=== PATIENT | male | born 1990 | race Native Hawaiian/Other Pacific Islander ===

== ENCOUNTER 2019-01-28 20:15 | Inpatient (IN) | payer OTHER ==
[2019-01-28] MEDS ORDERED: Sodium Chloride 0.9% 1,000 ML IV ONE (20:46)
--- NOTE | 2019-01-28 20:54 | C.PDOC ---
History Of Present Illness 29 y/o male presents to ED complaining of a burning sensation with urination and brownish discharge. States the symptoms started 3 days ago and took some antibiotics that helped relieve the symptoms. Reports he did not drink water the next day and symptoms returned yesterday but states his urine is clear when he drinks water. He denies any fever, chills, abdominal pain, nausea, vomiting, diarrhea, back pain, or other complaints. Time Seen by Provider: 01/28/19 20:28 Chief Complaint (Nursing): Anxiety History Per: Patient History/Exam Limitations: no limitations Onset/Duration Of Symptoms: Days Current Symptoms Are (Timing): Still Present Past Medical History Reviewed: Historical Data, Nursing Documentation, Vital Signs Vital Signs: Last Vital Signs Temp 100 F H 01/28/19 20:17 Pulse 144 H 01/28/19 20:17 Resp 20 01/28/19 20:17 BP 141/83 01/28/19 20:17 Pulse Ox 98 01/28/19 20:17 Primary Care Provider: FAMILY PROVIDER,NO - Medical History PMH: Anxiety Family History: States: No Known Family Hx - Social History Hx Alcohol Use: Yes Hx Substance Use: No - Immunization History Hx Tetanus Toxoid Vaccination: No Hx Influenza Vaccination: No Hx Pneumococcal Vaccination: No Review Of Systems Except As Marked, All Systems Reviewed And Found Negative. Constitutional: Negative for: Fever, Chills Gastrointestinal: Negative for: Nausea, Vomiting, Abdominal Pain, Diarrhea Genitourinary: Positive for: Dysuria, Other (brown discharge on urination) Musculoskeletal: Negative for: Back Pain Physical Exam - Physical Exam Appears: Non-toxic, No Acute Distress, Other (Anxious) Skin: Warm, Dry Head: Normacephalic Eye(s): bilateral: Normal Inspection Oral Mucosa: Moist Neck: Normal ROM, Supple Cardiovascular: Rhythm Regular (tachycardic), No Murmur Respiratory: Normal Breath Sounds, No Rales, No Rhonchi, No Wheezing Gastrointestinal/Abdominal: Soft, No Tenderness, No Distention, No Guarding, No Rebound Back: No CVA Tenderness Extremity: No Pedal Edema Extremity: Bilateral: Normal Color And Temperature, Normal ROM Neurological/Psych: Oriented x3, Normal Speech ED Course And Treatment - Laboratory Results Result Diagrams: 01/28/19 21:49 01/28/19 21:49 O2 Sat by Pulse Oximetry: 98 (RA) Pulse Ox Interpretation: Normal Medical Decision Making Medical Decision Making: Plan: --Labs --UA --IV fluids --Urine Culture 20:50- Spoke with Dr. Cruz Hospitalist supervisor electronics assembly who accepts the patient for admission. Disposition - Disposition Forms: [employer] ([place]) - Scribe Statement The provider has reviewed the documentation as recorded by the Scribe Sarah Bellamy Provider Attestation: All medical record entries made by the Scribe were at my direction and personally dictated by me. I have reviewed the chart and agree that the record accurately reflects my personal performance of the history, physical exam, medical decision making, and the department course for this patient. I have also personally directed, reviewed, and agree with the discharge instructions and disposition.
[2019-01-28 20:56] LABS: URINE BACTERIA RARE (<OCC); URINE BILIRUBIN NEGATIVE (NEGATIVE); URINE BLOOD 3+ (NEGATIVE); URINE CLARITY Hazy (Clear); URINE COLOR Straw (YELLOW); URINE GLUCOSE (UA) NORMAL (Normal); URINE LEUKOCYTE ESTERASE 3+ Leu/uL (Negative); URINE PROTEIN NEGATIVE (NEGATIVE); URINE UROBILINOGEN NORMAL mg/dL (0.2-1.0)
[2019-01-28 21:58] LABS: BASO # 0.1 K/uL (0.0-0.2); BASO % 0.6 % (0.0-2.0); EOS # 0.1 K/uL (0.0-0.7); EOS % 0.4 % (0.0-4.0); LYMPH # 3.9 K/uL (1.0-4.3); LYMPH % 21.7 % (20.0-40.0); MEAN CELL VOLUME 84.4 fL (80.0-94.0); MEAN CORPUSCULAR HEMOGLOBIN 28.5 pg (27.0-31.0); MEAN CORPUSCULAR HGB CONC 33.7 g/dL (33.0-37.0); MEAN PLATELET VOLUME 9.2 fL (7.2-11.7); MONO # 0.9 K/uL (0.0-0.8); MONO % 5.1 % (0.0-10.0); NEUT # 13.1 K/uL (1.8-7.0); NEUT % 72.2 % (50.0-75.0); RBC 4.9 Mil/uL (4.40-5.90)
[2019-01-28 22:00] LABS: WHITE BLOOD COUNT 18.1 K/uL (4.8-10.8)
[2019-01-28 22:05] LABS: INR 1.3; PROTHROMBIN TIME 14.7 SECONDS (9.7-12.2)
[2019-01-28 22:08] LABS: ALB/GLOB RATIO 1.4 (1.0-2.1); ALBUMIN 4.5 g/dL (3.5-5.0); ALT/SGPT 16 U/L (21-72); AST/SGOT 22 U/L (17-59); BLOOD UREA NITROGEN 7 mg/dL (9-20); CALCIUM 9.9 mg/dl (8.6-10.4); GFR NON-AFRICAN AMERICAN > 60
[2019-01-28] MEDS ORDERED: Potassium Chloride 20 mEq ER Tab PO STA (23:25)
[2019-01-28] MEDS ORDERED: Sodium Chloride 0.9% 1,000 ML ONE (23:28)
[2019-01-28] MEDS: Sodium Chloride 0.9% 1,000 ML IV SCH (23:49)
--- NOTE | 2019-01-29 00:29 | CP.PCM.HP ---
<Archie Gonzalez - Last Filed: 01/29/19 01:35> History of Present Illness - History of Present Illness History of Present Illness: 29M with no PMHx presents to ED with 3 days of worsening dark urines, dysuria refractory to home antibiotics. Pt said symptoms originally began to resolve w ith his home antibiotics (finished 7 days of Nitrofurantoin) but then symptoms worsened, prompting him to come to the ED. Reports dehydration, he didnt drink any water yesterday during the heat of the day, was out walking a lot at [employer]. Pt reports regular f/u in [place] and at the [facility] where his uncle works. Has been worked up in past for PKD - no cysts ever seen, no hx of HTN. Pt says he is anxious. Pt states he is now urinating pale yellow urine, no pain, feeling much better since started on IV Fluids. ROS Pos+ Dark urines, dysuria, dehydration, anxiety Neg- fever, chills, abdominal pain, nausea, vomiting, diarrhea, back pain, or other complaints. 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, smoking, drug use Allergies: denies Home Rx: Nitrofurantoin for UTI Joaquín [phone] full code Present on Admission - Present on Admission Any Indicators Present on Admission: No Review of Systems - Review of Systems All systems: reviewed and no additional remarkable complaints except (as per HPI) Past Patient History - Past Social History Smoking Status: Never Smoked - RENAL Other/Comment: UTI last week - PSYCHIATRIC Hx Anxiety: Yes Hx Substance Use: No - SURGICAL HISTORY Hx Surgeries: No Meds Allergies/Adverse Reactions: Allergies Allergy/AdvReac Type Severity Reaction Status Date / Time No Known Allergies Allergy Verified 01/10/16 21:20 Physical Exam - Constitutional Appears: Well, Non-toxic, No Acute Distress - Head Exam Head Exam: ATRAUMATIC, NORMAL INSPECTION - Eye Exam Eye Exam: EOMI, Normal appearance, PERRL. absent: Scleral icterus - ENT Exam ENT Exam: Mucous Membranes Moist - Neck Exam Neck exam: Negative for: Lymphadenopathy, Tenderness - Respiratory Exam Respiratory Exam: Clear to Auscultation Bilateral. absent: Rales, Wheezes, Stridor - Cardiovascular Exam Cardiovascular Exam: RRR, +S1, +S2 - GI/Abdominal Exam GI & Abdominal Exam: Normal Bowel Sounds, Soft. absent: Distended, Guarding, Rebound, Tenderness Results - Vital Signs Recent Vital Signs: Last Vital Signs Temp 97.9 F 01/28/19 23:48 Pulse 88 01/28/19 23:48 Resp 16 01/28/19 23:48 BP 119/78 01/28/19 23:48 Pulse Ox 100 01/28/19 23:48 - Labs Result Diagrams: 01/28/19 21:49 01/28/19 21:49 Labs: Laboratory Results - last 24 hr 01/28/19 01/28/19 01/28/19 20:47 21:49 21:49 WBC 18.1 H D RBC 4.90 Hgb 14.0 Hct 41.4 MCV 84.4 MCH 28.5 MCHC 33.7 RDW 13.0 Plt Count 239 MPV 9.2 Neut % (Auto) 72.2 Lymph % (Auto) 21.7 [place] % (Auto) 5.1 Eos % (Auto) 0.4 Baso % (Auto) 0.6 Neut # (Auto) 13.1 H Lymph # (Auto) 3.9 [place] # (Auto) 0.9 H Eos # (Auto) 0.1 Baso # (Auto) 0.1 PT 14.7 H INR 1.3 APTT 31.0 Sodium Potassium Chloride Carbon Dioxide Anion Gap BUN Creatinine Est GFR ( Amer) Est GFR (Non-Af Amer) Random Glucose Calcium Total Bilirubin AST ALT Alkaline Phosphatase Total Protein Albumin Globulin Albumin/Globulin Ratio Urine Color Straw Urine Clarity Hazy Urine pH 7.0 Ur Specific [place] 1.002 L Urine Protein Negative Urine Glucose (UA) Normal Urine Ketones Negative Urine Blood 3+ H Urine Nitrate Negative Urine Bilirubin Negative Urine Urobilinogen Normal Ur Leukocyte Esterase 3+ H Urine WBC (Auto) 103 H Urine RBC (Auto) 21 H Urine Bacteria Rare 01/28/19 21:49 WBC RBC Hgb Hct MCV MCH MCHC RDW Plt Count MPV Neut % (Auto) Lymph % (Auto) [place] % (Auto) Eos % (Auto) Baso % (Auto) Neut # (Auto) Lymph # (Auto) [place] # (Auto) Eos # (Auto) Baso # (Auto) PT INR APTT Sodium 133 Potassium 3.3 L Chloride 98 Carbon Dioxide 23 Anion Gap 15 BUN 7 L Creatinine 0.7 L Est GFR ( Amer) > 60 Est GFR (Non-Af Amer) > 60 Random Glucose 206 H D Calcium 9.9 Total Bilirubin 0.7 AST 22 ALT 16 L D Alkaline Phosphatase 97 Total Protein 7.8 Albumin 4.5 Globulin 3.2 Albumin/Globulin Ratio 1.4 Urine Color Urine Clarity Urine pH Ur Specific [place] Urine Protein Urine Glucose (UA) Urine Ketones Urine Blood Urine Nitrate Urine Bilirubin Urine Urobilinogen Ur Leukocyte Esterase Urine WBC (Auto) Urine RBC (Auto) Urine Bacteria Assessment & Plan - Assessment and Plan (Free Text) Assessment: 29M admitted for recurrent UTI Complicated UTI Rocephin 1g q12 IVPB NS @ 200 Tylenol for fevers WBCs Elevated, Febrile f/u UC and AM Labs Monitor I&Os Hypokalemia Replete as indicated f/u AM CMP PPx HHD CK PGY1 <Shailesh Cruz - Last Filed: 01/29/19 06:18> Results - Vital Signs Recent Vital Signs: Last Vital Signs Temp 98.8 F 01/29/19 01:00 Pulse 91 H 01/28/19 23:50 Resp 20 01/28/19 23:50 BP 132/78 01/28/19 23:50 Pulse Ox 100 01/28/19 23:50 - Labs Result Diagrams: 01/28/19 21:49 01/28/19 21:49 Labs: Laboratory Results - last 24 hr 01/28/19 01/28/19 01/28/19 20:47 21:49 21:49 WBC 18.1 H D RBC 4.90 Hgb 14.0 Hct 41.4 MCV 84.4 MCH 28.5 MCHC 33.7 RDW 13.0 Plt Count 239 MPV 9.2 Neut % (Auto) 72.2 Lymph % (Auto) 21.7 [place] % (Auto) 5.1 Eos % (Auto) 0.4 Baso % (Auto) 0.6 Neut # (Auto) 13.1 H Lymph # (Auto) 3.9 [place] # (Auto) 0.9 H Eos # (Auto) 0.1 Baso # (Auto) 0.1 PT 14.7 H INR 1.3 APTT 31.0 Sodium Potassium Chloride Carbon Dioxide Anion Gap BUN Creatinine Est GFR ( Amer) Est GFR (Non-Af Amer) Random Glucose Calcium Total Bilirubin AST ALT Alkaline Phosphatase Total Protein Albumin Globulin Albumin/Globulin Ratio Urine Color Straw Urine Clarity Hazy Urine pH 7.0 Ur Specific [place] 1.002 L Urine Protein Negative Urine Glucose (UA) Normal Urine Ketones Negative Urine Blood 3+ H Urine Nitrate Negative Urine Bilirubin Negative Urine Urobilinogen Normal Ur Leukocyte Esterase 3+ H Urine WBC (Auto) 103 H Urine RBC (Auto) 21 H Urine Bacteria Rare 01/28/19 21:49 WBC RBC Hgb Hct MCV MCH MCHC RDW Plt Count MPV Neut % (Auto) Lymph % (Auto) [place] % (Auto) Eos % (Auto) Baso % (Auto) Neut # (Auto) Lymph # (Auto) [place] # (Auto) Eos # (Auto) Baso # (Auto) PT INR APTT Sodium 133 Potassium 3.3 L Chloride 98 Carbon Dioxide 23 Anion Gap 15 BUN 7 L Creatinine 0.7 L Est GFR ( Amer) > 60 Est GFR (Non-Af Amer) > 60 Random Glucose 206 H D Calcium 9.9 Total Bilirubin 0.7 AST 22 ALT 16 L D Alkaline Phosphatase 97 Total Protein 7.8 Albumin 4.5 Globulin 3.2 Albumin/Globulin Ratio 1.4 Urine Color Urine Clarity Urine pH Ur Specific [place] Urine Protein Urine Glucose (UA) Urine Ketones Urine Blood Urine Nitrate Urine Bilirubin Urine Urobilinogen Ur Leukocyte Esterase Urine WBC (Auto) Urine RBC (Auto) Urine Bacteria Assessment & Plan - Date & Time Date: 01/29/19 (I have seen and examined the patient. I agree with the findings and plan of care as documented by Dr. Gonzalez. Patient with acute UTI. Failure of outpatient therapy. IV Rocephin. Urine and blood cultures. Hypokalemia. Replete. Monitor for acute changes.) Time: 02:00 Attending/Attestation - Attestation I have personally seen and examined this patient.: Yes I have fully participated in the care of the patient.: Yes I have reviewed all pertinent clinical information: Yes
[2019-01-29] MEDS: Sodium Chloride 0.9% 1,000 ML IV SCH ×2 (04:23→19:38)
[2019-01-29 08:29] LABS: BASO % 0.4 % (0.0-2.0); EOS # 0.1 K/uL (0.0-0.7); EOS % 0.6 % (0.0-4.0); HEMOGLOBIN 12.4 g/dL (12.0-18.0); LYMPH # 1.7 K/uL (1.0-4.3); LYMPH % 20.2 % (20.0-40.0); MEAN CELL VOLUME 83.5 fL (80.0-94.0); MEAN CORPUSCULAR HEMOGLOBIN 28.9 pg (27.0-31.0); MEAN CORPUSCULAR HGB CONC 34.6 g/dL (33.0-37.0); MEAN PLATELET VOLUME 9.2 fL (7.2-11.7); MONO # 0.4 K/uL (0.0-0.8); MONO % 5.4 % (0.0-10.0); NEUT # 6.1 K/uL (1.8-7.0); NEUT % 73.4 % (50.0-75.0); NRBC % 0.1 % (0.0-2.0); RBC 4.3 Mil/uL (4.40-5.90); RED CELL DISTRIBUTION WIDTH 12.9 % (11.5-14.5)
[2019-01-29 08:34] LABS: WHITE BLOOD COUNT 8.3 K/uL (4.8-10.8)
[2019-01-29 08:51] LABS: ALB/GLOB RATIO 1.4 (1.0-2.1); ALBUMIN 3.6 g/dL (3.5-5.0); ALT/SGPT 22 U/L (21-72); AST/SGOT 22 U/L (17-59); BLOOD UREA NITROGEN 6 mg/dL (9-20); CALCIUM 8.4 mg/dl (8.6-10.4); GFR NON-AFRICAN AMERICAN > 60
--- NOTE | 2019-01-29 14:36 | CP.PCM.PN ---
<Tr Real - Last Filed: 01/29/19 14:32> Subjective - Date & Time of Evaluation Date of Evaluation: 01/29/19 Time of Evaluation: 14:36 - Subjective Subjective: PGY-[address] Rajan Patient seen and examined at bedside. Tmax noted 100.9 overnight. Patient states his symptoms have all resolved. Patient that prior to today he had been experiencing burning with urination and increased urinary frequency. He states that today however, he has urinated without any discomfort and has not had increased frequency. Denies flank pain, abdominal pain, abdominal distention. Denies chest pain, shortness of breath, dizziness, headache, shortness of breath. Objective - Vital Signs/Intake and Output Vital Signs (last 24 hours): Temp Pulse Resp BP Pulse Ox 97.8 F 83 20 116/71 100 01/29/19 08:00 01/29/19 08:00 01/29/19 08:00 01/29/19 08:00 01/29/19 08:00 Intake and Output: 01/29/19 01/29/19 06:59 18:59 Intake Total 1600 Balance 1600 - Medications Medications: Current Medications Acetaminophen (Tylenol 325mg Tab) 650 mg PO Q6 PRN PRN Reason: Fever >100.4 F Last Admin: 01/29/19 00:53 Dose: 650 mg Ceftriaxone Sodium 1 gm/ (Sodium Chloride) 100 mls @ 100 mls/hr IVPB Q12H EL; Protocol Last Admin: 01/29/19 10:38 Dose: 100 mls/hr Sodium Chloride (Sodium Chloride 0.9%) 1,000 mls @ 200 mls/hr IV .Q5H EL Last Admin: 01/29/19 04:23 Dose: Not Given - Labs Labs: 01/29/19 08:17 01/29/19 08:17 PT 14.7 SECONDS (9.7-12.2) H 01/28/19 21:49 INR 1.3 01/28/19 21:49 APTT 31.0 SECONDS (21-34) 01/28/19 21:49 - Constitutional Appears: Non-toxic, No Acute Distress - Head Exam Head Exam: ATRAUMATIC, NORMOCEPHALIC - Eye Exam Eye Exam: EOMI, PERRL - ENT Exam ENT Exam: Mucous Membranes Moist - Respiratory Exam Respiratory Exam: Clear to Ausculation Bilateral, NORMAL BREATHING PATTERN. absent: Rhonchi, Wheezes - Cardiovascular Exam Cardiovascular Exam: REGULAR RHYTHM, +S1, +S2 - GI/Abdominal Exam GI & Abdominal Exam: Soft, Normal Bowel Sounds. absent: Tenderness - Extremities Exam Extremities Exam: Normal Inspection. absent: Pedal Edema - Neurological Exam Neurological Exam: Alert, Awake, Oriented x3 - Psychiatric Exam Psychiatric exam: Normal Affect, Normal Mood - Skin Skin Exam: Dry, Intact Assessment and Plan - Assessment and Plan (Free Text) Assessment: 29M admitted for UTI that did not resolve with outpatient therapy Complicated UTI -WBC 18.1 --> 8.3 -Tmax 100.9 overnight -NS @ 200 -Tylenol prn fever -Monitor I&Os Imaging -CT abd/pelvis 01/29 - f/u ABx -Rocephin 1g q12 IVPB Hypokalemia -Replete as indicated -Monitor daily CMP PPx -HHD Assessment and plan d/w Dr. Mohini Real, PGY-1 <Shankar Rajan H - Last Filed: 01/29/19 15:10> Objective - Vital Signs/Intake and Output Vital Signs (last 24 hours): Temp Pulse Resp BP Pulse Ox 97.8 F 83 20 116/71 100 01/29/19 08:00 01/29/19 08:00 01/29/19 08:00 01/29/19 08:00 01/29/19 08:00 Intake and Output: 01/29/19 01/29/19 06:59 18:59 Intake Total 1600 Balance 1600 - Medications Medications: Current Medications Acetaminophen (Tylenol 325mg Tab) 650 mg PO Q6 PRN PRN Reason: Fever >100.4 F Last Admin: 01/29/19 00:53 Dose: 650 mg Ceftriaxone Sodium 1 gm/ (Sodium Chloride) 100 mls @ 100 mls/hr IVPB Q12H EL; Protocol Last Admin: 01/29/19 10:38 Dose: 100 mls/hr Sodium Chloride (Sodium Chloride 0.9%) 1,000 mls @ 200 mls/hr IV .Q5H EL Last Admin: 01/29/19 04:23 Dose: Not Given Lorazepam (Ativan) 0.5 mg PO ONCE PRN PRN Reason: Anxiety - Labs Labs: 01/29/19 08:17 01/29/19 08:17 PT 14.7 SECONDS (9.7-12.2) H 01/28/19 21:49 INR 1.3 01/28/19 21:49 APTT 31.0 SECONDS (21-34) 01/28/19 21:49 Attending/Attestation - Attestation I have personally seen and examined this patient.: Yes I have fully participated in the care of the patient.: Yes I have reviewed all pertinent clinical information, including history, physical exam and plan: Yes Notes (Text): 01/29/19 15:08 Medical attending: Patient was seen and examined by me. Agree with the above not e by the resident The patient was not in any acute distress. The urine was reporting + gram negative bacteria. He says he feels a lot better nowm much less dyuria than previously. Denied fever, denied pain when walking. Denied scrotal pain as well Check HIV and also check imaging Peer Rajan
[2019-01-29] MEDS ORDERED: Iohexol 350mg/ml 100 ML ONE (19:17)
[2019-01-30] MEDS: Sodium Chloride 0.9% 1,000 ML IV SCH ×6 (01:43→23:36)
[2019-01-30 07:06] LABS: ALB/GLOB RATIO 1.2 (1.0-2.1); ALBUMIN 3.5 g/dL (3.5-5.0); ALT/SGPT 23 U/L (21-72); AST/SGOT 19 U/L (17-59); BLOOD UREA NITROGEN 7 mg/dL (9-20); CALCIUM 8.8 mg/dl (8.6-10.4); GFR NON-AFRICAN AMERICAN > 60
[2019-01-30 07:07] LABS: BASO % 0.4 % (0.0-2.0); EOS # 0.1 K/uL (0.0-0.7); EOS % 1.1 % (0.0-4.0); HEMOGLOBIN 12.5 g/dL (12.0-18.0); LYMPH # 2.3 K/uL (1.0-4.3); LYMPH % 28.4 % (20.0-40.0); MEAN CELL VOLUME 84.4 fL (80.0-94.0); MEAN CORPUSCULAR HEMOGLOBIN 28.7 pg (27.0-31.0); MEAN PLATELET VOLUME 9.2 fL (7.2-11.7); MONO # 0.4 K/uL (0.0-0.8); MONO % 5.6 % (0.0-10.0); NEUT # 5.1 K/uL (1.8-7.0); NEUT % 64.5 % (50.0-75.0); RBC 4.35 Mil/uL (4.40-5.90); WHITE BLOOD COUNT 7.9 K/uL (4.8-10.8)
--- NOTE | 2019-01-30 11:14 | CT ---
Date of service: 01/30/2019 PROCEDURE: CT Abdomen and Pelvis with Oral contrast. HISTORY: UTI in 29 yo male COMPARISON: No prior study available comparison. TECHNIQUE: Contiguous axial images of the abdomen and pelvis performed in standard fashion following intravenous injection approximately 100 cc Omnipaque 350 contrast material. Additional 2D sagittal coronal reformats generated. Radiation dose: Total exam DLP = 212.22 mGy-cm. This CT exam was performed using one or more of the following dose reduction techniques: Automated exposure control, adjustment of the mA and/or kV according to patient size, and/or use of iterative reconstruction technique. FINDINGS: LOWER THORAX: Unremarkable. LIVER: Liver exhibits relatively normal size and attenuation pattern without mass collection or calcification portal and splenic veins are opacified GALLBLADDER AND BILE DUCTS: Gallbladder physiologically distended. No evidence of intraluminal gallbladder calculi. PANCREAS: Pancreas grossly unremarkable without mass collection or calcification. No significant pancreatic ductal dilatation. SPLEEN: Spleen exhibits normal size and attenuation pattern without masses collections. ADRENALS: Slightly nodular appearing left adrenal gland. KIDNEYS AND URETERS: Kidneys demonstrate symmetric nephrograms. No evidence of nephrolithiasis or hydronephrosis. There is a small approximately 6.6 mm low-attenuation focus lateral posterolateral cortex left kidney that exhibits Hounsfield units in the upper 40s. This could represent a hyperdense cyst. Renal ultrasound follow-up confirm and exclude any solid component.. No evidence to suggest pyelonephritis. BLADDER: Urinary bladder wall is minimally thickened despite physiologic distension. Rule out mild muscular hypertrophy however correlation with urinalysis recommended to assess for cystitis. REPRODUCTIVE: Unremarkable as visualized. APPENDIX: What is felt to represent normal appendix best seen on axial series 3, image number [id number]. BOWEL: Evaluation of bowel is limited due to the lack oral on the stomach is incompletely distended. Visualized loops of small bowel exhibit normal contour caliber. No evidence of acute mechanical small bowel obstruction. Large amount of stool seen throughout colon consistent with fecal retention/constipation. PERITONEUM: Unremarkable. No fluid collection. No free air. LYMPH NODES: Unremarkable. No enlarged lymph nodes. VASCULATURE: Unremarkable. No aortic aneurysm. No aortic atherosclerotic calcification or mural plaque present. BONES: No fracture or destructive lesion. OTHER FINDINGS: None. IMPRESSION: Minimal bladder wall thickening; rule out cystitis.. No evidence of nephrolithiasis hydronephrosis. No evidence suggest pyelonephritis. Small rounded low-attenuation focus lateral cortex right kidney with Hounsfield units in the low 40s. This could represent hyperdense cyst. Renal ultrasound confirm. Findings consistent with fecal retention-constipation
--- NOTE | 2019-01-30 14:50 | CP.PCM.PN ---
<Tr Real - Last Filed: 01/30/19 14:50> Subjective - Date & Time of Evaluation Date of Evaluation: 01/30/19 Time of Evaluation: 14:58 - Subjective Subjective: PGY-[address] Rajan Patient seen and examined at bedside. Afebrile overnight. Patient states his symptoms have all resolved. Cultures resulted growing ESBL+ E coli. Patient made aware of need for longer course IV antibiotics. Denies chest pain, sh ortness of breath, dizziness, headache, shortness of breath. Objective - Vital Signs/Intake and Output Vital Signs (last 24 hours): Temp Pulse Resp BP Pulse Ox 97.9 F 65 20 96/60 L 100 01/30/19 08:00 01/30/19 08:00 01/30/19 08:00 01/30/19 08:00 01/30/19 08:00 Intake and Output: 01/30/19 01/30/19 06:59 18:59 Intake Total 2740 300 Balance 2740 300 - Medications Medications: Current Medications Acetaminophen (Tylenol 325mg Tab) 650 mg PO Q6 PRN PRN Reason: Fever >100.4 F Last Admin: 01/29/19 00:53 Dose: 650 mg Sodium Chloride (Sodium Chloride 0.9%) 1,000 mls @ 200 mls/hr IV .Q5H EL Last Admin: 01/30/19 12:54 Dose: Not Given Meropenem 1 gm/ Sodium (Chloride) 100 mls @ 100 mls/hr IVPB Q8H EL; Protocol Lorazepam (Ativan) 0.5 mg PO ONCE PRN PRN Reason: Anxiety Last Admin: 01/29/19 19:33 Dose: 0.5 mg Lorazepam (Ativan) 0.5 mg PO ONCE PRN PRN Reason: Anxiety Last Admin: 01/30/19 07:53 Dose: 0.5 mg - Labs Labs: 01/30/19 06:44 01/30/19 06:44 PT 14.7 SECONDS (9.7-12.2) H 01/28/19 21:49 INR 1.3 01/28/19 21:49 APTT 31.0 SECONDS (21-34) 01/28/19 21:49 - Constitutional Appears: Non-toxic, No Acute Distress - Head Exam Head Exam: ATRAUMATIC, NORMOCEPHALIC - Eye Exam Eye Exam: EOMI - ENT Exam ENT Exam: Mucous Membranes Moist - Respiratory Exam Respiratory Exam: Clear to Ausculation Bilateral, NORMAL BREATHING PATTERN. absent: Rhonchi, Wheezes - Cardiovascular Exam Cardiovascular Exam: REGULAR RHYTHM, +S1, +S2 - GI/Abdominal Exam GI & Abdominal Exam: Soft, Normal Bowel Sounds. absent: Tenderness - Extremities Exam Extremities Exam: Normal Inspection. absent: Pedal Edema, Tenderness - Neurological Exam Neurological Exam: Alert, Awake, CN II-XII Intact, Oriented x3 - Skin Skin Exam: Dry, Intact Assessment and Plan - Assessment and Plan (Free Text) Assessment: Assessment: 29M admitted for UTI that did not resolve with outpatient therapy. ESBL E coli UTI. ESBL E Coli in Urine Acute Imaging: CT abd/pelvis 01/30: Minimal bladder wall thickening; rule out cystitis.. No evidence of nephrolithiasis hydronephrosis. No evidence suggest pyelonephritis. Small rounded low-attenuation focus lateral cortex right kidney with Hounsfield units in the low 40s. This could represent hyperdense cyst. Renal ultrasound confirm. Findings consistent with fecal retention-constipation -ID consulted, Dr. Lucas - f/u -Urine cultures - ESBL E Coli (sensitive to Meropenem) - final -Patient informed he is likely to require long-term antibiotic therapy for up to 8 weeks -Leukocytosis resolved -Afebrile -NS @ 200 -Tylenol prn fever -Monitor I&Os -Rocephin d/c'd (01/28-01/30) ABx -Meropenem 1gm IV Q8h (01/30) Hypokalemia resolved -Replete as indicated -Monitor daily CMP PPx -HHD Dispo: Urine cultures resulted growing ESBL E Coli sensitive to Meropenem. ID consulted, Dr. Lucas. Patient made aware need for long course IV abx. D/w CM and patient does not have insurance, will not be eligible for outpatient infusions. Assessment and plan d/w Dr. Mohini Real, PGY-1 <Shankar Rajan - Last Filed: 01/30/19 16:39> Objective - Vital Signs/Intake and Output Vital Signs (last 24 hours): Temp Pulse Resp BP Pulse Ox 98.9 F 85 20 98/61 L 100 01/30/19 15:00 01/30/19 15:00 01/30/19 15:00 01/30/19 15:00 01/30/19 15:00 Intake and Output: 01/30/19 01/30/19 06:59 18:59 Intake Total 2740 300 Balance 2740 300 - Medications Medications: Current Medications Acetaminophen (Tylenol 325mg Tab) 650 mg PO Q6 PRN PRN Reason: Fever >100.4 F Last Admin: 01/29/19 00:53 Dose: 650 mg Sodium Chloride (Sodium Chloride 0.9%) 1,000 mls @ 200 mls/hr IV .Q5H EL Last Admin: 01/30/19 16:20 Dose: 200 mls/hr Meropenem 1 gm/ Sodium (Chloride) 100 mls @ 100 mls/hr IVPB Q8H EL; Protocol Last Admin: 01/30/19 16:15 Dose: 100 mls/hr Lorazepam (Ativan) 0.5 mg PO ONCE PRN PRN Reason: Anxiety Last Admin: 01/29/19 19:33 Dose: 0.5 mg Lorazepam (Ativan) 0.5 mg PO ONCE PRN PRN Reason: Anxiety Last Admin: 01/30/19 07:53 Dose: 0.5 mg - Labs Labs: 01/30/19 06:44 01/30/19 06:44 PT 14.7 SECONDS (9.7-12.2) H 01/28/19 21:49 INR 1.3 01/28/19 21:49 APTT 31.0 SECONDS (21-34) 01/28/19 21:49 Attending/Attestation - Attestation I have personally seen and examined this patient.: Yes I have fully participated in the care of the patient.: Yes I have reviewed all pertinent clinical information, including history, physical exam and plan: Yes Notes (Text): 01/30/19 16:30 Medical attending: Patient was seen and examined by me. Agree with the above note by the resident The patient was not in any acute distress He went for the CT scan earlier this morning The patient also had return of the culture showing he has ESBL + E coli. We were about to discharge patient however given this culture ID was notified and Merropenon is being given Shankar Rajan
[2019-01-30] MEDS: Meropenem 1 GM in Sodium Chloride 0.9% 100 ML IVPB SCH ×2 (16:15→23:32)
[2019-01-31] MEDS: Sodium Chloride 0.9% 1,000 ML IV SCH ×6 (01:42→21:55)
[2019-01-31 08:07] VITALS: O2SAT 100
[2019-01-31] MEDS: Meropenem 1 GM in Sodium Chloride 0.9% 100 ML IVPB SCH (08:08)
[2019-01-31 08:20] LABS: BASO % 0.4 % (0.0-2.0); EOS # 0.1 K/uL (0.0-0.7); EOS % 0.8 % (0.0-4.0); HEMOGLOBIN 13.7 g/dL (12.0-18.0); LYMPH # 1.7 K/uL (1.0-4.3); LYMPH % 24.1 % (20.0-40.0); MEAN CELL VOLUME 83.5 fL (80.0-94.0); MEAN CORPUSCULAR HEMOGLOBIN 28.9 pg (27.0-31.0); MEAN CORPUSCULAR HGB CONC 34.6 g/dL (33.0-37.0); MEAN PLATELET VOLUME 8.8 fL (7.2-11.7); MONO # 0.3 K/uL (0.0-0.8); MONO % 4.6 % (0.0-10.0); NEUT # 5.1 K/uL (1.8-7.0); NEUT % 70.1 % (50.0-75.0); RBC 4.73 Mil/uL (4.40-5.90); WHITE BLOOD COUNT 7.2 K/uL (4.8-10.8)
[2019-01-31 08:36] LABS: ALB/GLOB RATIO 1.5 (1.0-2.1); ALT/SGPT 21 U/L (21-72); AST/SGOT 21 U/L (17-59); BLOOD UREA NITROGEN 11 mg/dL (9-20); CALCIUM 8.9 mg/dl (8.6-10.4); GFR NON-AFRICAN AMERICAN > 60
--- NOTE | 2019-01-31 09:27 | CP.PCM.PN ---
<Tr Real - Last Filed: 01/31/19 15:08> Subjective - Date & Time of Evaluation Date of Evaluation: 01/31/19 Time of Evaluation: 09:32 - Subjective Subjective: PGY-[address] Rajan Patient seen and examined at bedside. No acute events noted overnight. Patient continues to be asymptomatic. Afebrile overnight. Patient expressing frustration with ESBL diagnosis, but he understands. Denies chest pain, shortne ss of breath, dizziness, headache, shortness of breath. Objective - Vital Signs/Intake and Output Vital Signs (last 24 hours): Temp Pulse Resp BP Pulse Ox 98.5 F 65 20 106/66 100 01/31/19 07:10 01/31/19 07:10 01/31/19 07:10 01/31/19 07:10 01/31/19 07:10 Intake and Output: 01/31/19 01/31/19 06:59 18:59 Intake Total 3740 Balance 3740 - Medications Medications: Current Medications Acetaminophen (Tylenol 325mg Tab) 650 mg PO Q6 PRN PRN Reason: Fever >100.4 F Last Admin: 01/29/19 00:53 Dose: 650 mg Sodium Chloride (Sodium Chloride 0.9%) 1,000 mls @ 200 mls/hr IV .Q5H EL Last Admin: 01/31/19 05:38 Dose: 200 mls/hr Meropenem 1 gm/ Sodium (Chloride) 100 mls @ 100 mls/hr IVPB Q8H EL; Protocol Last Admin: 01/31/19 08:08 Dose: 100 mls/hr Lorazepam (Ativan) 0.5 mg PO ONCE PRN PRN Reason: Anxiety Last Admin: 01/29/19 19:33 Dose: 0.5 mg Lorazepam (Ativan) 0.5 mg PO ONCE PRN PRN Reason: Anxiety Last Admin: 01/30/19 07:53 Dose: 0.5 mg - Labs Labs: 01/31/19 08:08 01/31/19 08:08 PT 14.7 SECONDS (9.7-12.2) H 01/28/19 21:49 INR 1.3 01/28/19 21:49 APTT 31.0 SECONDS (21-34) 01/28/19 21:49 - Constitutional Appears: Non-toxic, No Acute Distress - Head Exam Head Exam: ATRAUMATIC, NORMOCEPHALIC - Eye Exam Eye Exam: EOMI - ENT Exam ENT Exam: Mucous Membranes Moist - Respiratory Exam Respiratory Exam: Clear to Ausculation Bilateral, NORMAL BREATHING PATTERN. absent: Rhonchi, Wheezes - Cardiovascular Exam Cardiovascular Exam: REGULAR RHYTHM, +S1, +S2 - GI/Abdominal Exam GI & Abdominal Exam: Soft, Normal Bowel Sounds. absent: Tenderness - Extremities Exam Extremities Exam: Normal Inspection. absent: Pedal Edema, Tenderness - Neurological Exam Neurological Exam: Alert, Awake - Psychiatric Exam Psychiatric exam: Normal Affect, Normal Mood - Skin Skin Exam: Dry, Intact Assessment and Plan - Assessment and Plan (Free Text) Assessment: 29M admitted for UTI that did not resolve with outpatient therapy. ESBL E coli UTI. ESBL E Coli in Urine status: acute Imaging: CT abd/pelvis 01/30: Minimal bladder wall thickening; rule out cystitis.. No evidence of nephrolithiasis hydronephrosis. No evidence suggest pyelonephritis. Small rounded low-attenuation focus lateral cortex right kidney with Hounsfield units in the low 40s. This could represent hyperdense cyst. Renal ultrasound confirm. Findings consistent with fecal retention-constipation -Asymptomatic at this time -ID consulted, Dr. Lucas - f/u -Urine cultures - ESBL E Coli (sensitive to Meropenem) - final -Patient informed he is likely to require long-term antibiotic therapy -Leukocytosis resolved -Afebrile -NS @ 200 -Tylenol prn fever -Monitor I&Os -Rocephin d/c'd (01/28-01/30) ABx -Meropenem 1gm IV Q8h (01/30) Anxiety -Psych consulted per patient request, Dr. Del Valle - f/u Hypokalemia status: resolved -Replete as indicated -Monitor daily CMP PPx -HHD Dispo: Urine cultures resulted growing ESBL E Coli sensitive to Meropenem. ID consulted, Dr. Lucas. Patient made aware need for long course IV abx. D/w CM and patient does not have insurance, will not be eligible for outpatient infus ions. Assessment and plan d/w Dr. Mohini Real, PGY-1 <Shankar Rajan - Last Filed: 01/31/19 17:19> Objective - Vital Signs/Intake and Output Vital Signs (last 24 hours): Temp Pulse Resp BP Pulse Ox 98.0 F 84 20 120/81 100 01/31/19 16:00 01/31/19 16:00 01/31/19 16:00 01/31/19 16:00 01/31/19 16:00 Intake and Output: 01/31/19 01/31/19 06:59 18:59 Intake Total 3740 1400 Balance 3740 1400 - Medications Medications: Current Medications Acetaminophen (Tylenol 325mg Tab) 650 mg PO Q6 PRN PRN Reason: Fever >100.4 F Last Admin: 01/29/19 00:53 Dose: 650 mg Sodium Chloride (Sodium Chloride 0.9%) 1,000 mls @ 200 mls/hr IV .Q5H EL Last Admin: 01/31/19 16:31 Dose: Not Given Lorazepam (Ativan) 0.5 mg PO ONCE PRN PRN Reason: Anxiety Last Admin: 01/29/19 19:33 Dose: 0.5 mg Lorazepam (Ativan) 0.5 mg PO ONCE PRN PRN Reason: Anxiety Last Admin: 01/30/19 07:53 Dose: 0.5 mg - Labs Labs: 01/31/19 08:08 01/31/19 08:08 PT 14.7 SECONDS (9.7-12.2) H 01/28/19 21:49 INR 1.3 01/28/19 21:49 APTT 31.0 SECONDS (21-34) 01/28/19 21:49 Attending/Attestation - Attestation I have personally seen and examined this patient.: Yes I have fully participated in the care of the patient.: Yes I have reviewed all pertinent clinical information, including history, physical exam and plan: Yes Notes (Text): Medical attending: Patient was seen and examined by me. Agree with the above note by the resident The patient was not in any acute distress - he reported feeling comfortable. As previously mentioned there was + ESBL E coli found in the culture so abx were now changed over. The patient later was evaluated by ID and it was suggested that the patient could get a PICC line and then come back to the hospital for Inavz infusions. Otherwise he may need to be here for a prolonged period of time with the IV abx Shankar Rajan
--- NOTE | 2019-01-31 15:03 | CP.PCM.CON ---
History of Present Illness - History of Present Illness History of Present Illness: dictated Past Patient History - Past Medical History & Family History Past Medical History?: Yes - Past Social History Smoking Status: Never Smoked - RENAL Other/Comment: UTI last week - MUSCULOSKELETAL/RHEUMATOLOGICAL Hx Falls: No - PSYCHIATRIC Hx Anxiety: Yes Hx Substance Use: No - SURGICAL HISTORY Hx Surgeries: No - ANESTHESIA Hx Anesthesia: No Hx Malignant Hyperthermia: No Has any member of the family had a problem w/ anesthesia?: No Meds Home Medications: Home Medication List Medication Instructions Recorded Confirmed Type Ciprofloxacin [Cipro] 500 mg PO BID #10 tab 01/30/19 Rx Allergies/Adverse Reactions: Allergies Allergy/AdvReac Type Severity Reaction Status Date / Time No Known Allergies Allergy Verified 01/10/16 21:20 - Medications Medications: Current Medications Acetaminophen (Tylenol 325mg Tab) 650 mg PO Q6 PRN PRN Reason: Fever >100.4 F Last Admin: 01/29/19 00:53 Dose: 650 mg Sodium Chloride (Sodium Chloride 0.9%) 1,000 mls @ 200 mls/hr IV .Q5H EL Last Admin: 01/31/19 12:18 Dose: 200 mls/hr Meropenem 1 gm/ Sodium (Chloride) 100 mls @ 100 mls/hr IVPB Q8H EL; Protocol Last Admin: 01/31/19 08:08 Dose: 100 mls/hr Lorazepam (Ativan) 0.5 mg PO ONCE PRN PRN Reason: Anxiety Last Admin: 01/29/19 19:33 Dose: 0.5 mg Lorazepam (Ativan) 0.5 mg PO ONCE PRN PRN Reason: Anxiety Last Admin: 01/30/19 07:53 Dose: 0.5 mg Results - Vital Signs Recent Vital Signs: Last Vital Signs Temp 98.5 F 01/31/19 07:10 Pulse 65 01/31/19 07:10 Resp 20 01/31/19 07:10 BP 106/66 01/31/19 07:10 Pulse Ox 100 01/31/19 07:10 - Labs Result Diagrams: 01/31/19 08:08 01/31/19 08:08 Labs: Laboratory Results - last 24 hr 01/31/19 01/31/19 08:08 08:08 WBC 7.2 RBC 4.73 Hgb 13.7 Hct 39.5 MCV 83.5 MCH 28.9 MCHC 34.6 RDW 13.0 Plt Count 208 MPV 8.8 Neut % (Auto) 70.1 Lymph % (Auto) 24.1 Alfalfa % (Auto) 4.6 Eos % (Auto) 0.8 Baso % (Auto) 0.4 Neut # (Auto) 5.1 Lymph # (Auto) 1.7 Alfalfa # (Auto) 0.3 Eos # (Auto) 0.1 Baso # (Auto) 0.0 Sodium 140 Potassium 4.2 Chloride 106 Carbon Dioxide 25 Anion Gap 14 BUN 11 Creatinine 0.7 L Est GFR ( Amer) > 60 Est GFR (Non-Af Amer) > 60 Random Glucose 82 Calcium 8.9 Total Bilirubin 0.6 AST 21 ALT 21 Alkaline Phosphatase 72 Total Protein 6.6 Albumin 4.0 Globulin 2.6 Albumin/Globulin Ratio 1.5
--- NOTE | 2019-01-31 17:09 | PCM.PSYCH ---
Initial Psychiatric Evaluation - Initial Psychiatric Evaluation Type of Admission: Voluntary Legal Status: Capacity Chief Complaint (in patient's own words): I was feeling anxious Current Medications: Active Medications Generic Name Dose Route Start Last Admin Trade Name Steven PRN Reason Stop Dose Admin Acetaminophen 650 mg 01/29/19 00:31 01/29/19 00:53 Tylenol 325mg Tab PO 650 mg Q6 PRN Administration Fever >100.4 F Sodium Chloride 1,000 mls @ 200 mls/hr 01/28/19 23:00 01/31/19 16:31 Sodium Chloride 0.9% IV Not Given .Q5H EL Lorazepam 0.5 mg 01/29/19 14:49 01/29/19 19:33 Ativan PO 0.5 mg ONCE PRN Administration Anxiety Lorazepam 0.5 mg 01/30/19 07:33 01/30/19 07:53 Ativan PO 0.5 mg ONCE PRN Administration Anxiety Past Psychiatric History - Past Psychiatric History Previous Treatment History: None Pertinent Medical Hx (Current Medical&Sleep Prob, Allergies): Allergies Allergy/AdvReac Type Severity Reaction Status Date / Time No Known Allergies Allergy Verified 01/10/16 21:20 Ciprofloxacin [Cipro] 500 mg PO BID #10 tab 01/30/19 Review of Systems - Review of Systems All systems: reviewed and no additional remarkable complaints except - Psychiatric Psychiatric: Anxiety, Irritability. absent: Suicidal Ideation Mental Status Examination - Personal Presentation Personal Presentation: Looks stated age - Affect Affect: Constricted - Motor Activity Motor Activity: Calm - Reliability in Providing Information Reliability in Providing Information: Good - Speech Speech: Organized - Mood Mood: Anxious - Formal Thought Process Formal Thought Process: No Impairment - Obsessions/Compulsions Obsessions: No Compulsions: No - Cognitive Functions Orientation: Person, Place, Situation, Time Sensorium: Alert Attention/Concentration: Attentive Abstract Thinking: [place] Estimate of Intelligence: Below average Judgement: Imparied, as evidence by: Poor judgement, Intact, as evidence by: Insight regarding need for hospitalization - Risk Risk: Diminished functioning - Limitations Limitations: Living alone DSM 5 DX - DSM 5 DSM 5 Diagnosis: Anxiety disorder NOS - Recommended/Plan of Treatment Treatment Recommendations and Plan of Treatment: Anxiety disorder NOS Psychoeducation Hydroxyzine for anxiety Patient psychiatrically stable and cleared
--- NOTE | 2019-01-31 17:58 | US ---
Date of service: 01/31/2019 PROCEDURE: Ultrasound of the Kidneys HISTORY: abnormality left kidney r/o cyst. f/o polycystic k COMPARISON: None available. TECHNIQUE: Sonogram of the kidneys. FINDINGS: RIGHT KIDNEY: Measures: 10.4 x 4.3 x 4.8 cm. Normal in size and contour. A tiny simple cyst measures 0.6 x 0.4 x 0.5 cm at the upper pole with remaining parenchyma normal appearing. No stone, solid mass lesion or hydronephrosis visualized. LEFT KIDNEY: Measures: 10.1 x 5.4 x 4.7 cm. Normal in size and overall echogenicity with potential tiny exophytic cyst related to the midpole laterally 0.4 x 0.5 x 0.5 cm size. No stone, solid mass lesion or hydronephrosis visualized. OTHER FINDINGS: None. IMPRESSION: No suspicious renal findings bilaterally. No obstructive uropathy. Tiny bilateral renal cysts suggested with 1 in each kidney as discussed above.
[2019-02-01] MEDS: Sodium Chloride 0.9% 1,000 ML IV SCH ×2 (00:30→05:46)
--- NOTE | 2019-02-01 05:39 | CON ---
DATE: 01/31/2019 INFECTIOUS DISEASE CONSULT REQUESTED BY: Dr. Cruz. HISTORY OF PRESENT ILLNESS: This patient is a 29-year-old male. He was admitted from emergency room. He was having some dysuria and had dark urine; and he has taken Macrodantin 7 days without any response, was admitted. He has been on Cipro, and now, he says he feels symptom-free. However, his urine culture had ESBL positive, hence I am asked to evaluate him. He denies any back pain. He does say that he has been worked up for PKD and had no cyst. He has no history of hypertension, but his mother has polycystic kidney disease. He is urinating well now, has no back pain, no suprapubic pain; however, urine has ESBL. REVIEW OF SYSTEMS; He had no fever, no chills. No abdominal pain. No nausea, no vomiting, no diarrhea. He is very anxious. He says he wants to go back to [place], and I told him this problem is treatable and he does not have to go anywhere because of this, and when I am dictating, that he was seen by the psychiatrist also after I saw him. His later on came to the bedside and wanted to know when he would be discharged. Other review of systems is totally denied. FAMILY HISTORY: Polycystic kidney disease. SOCIAL HISTORY: He is a pharmacist. He denies EtOH abuse; and denies any smoking, no drug abuse. ALLERGIES: HE IS NOT ALLERGIC TO ANY MEDICINE. MEDICATIONS: He has been on nitrofurantoin for UTI and here he received Cipro since admission and yesterday when the culture was available, we changed it to meropenem, so he has received meropenem for one day. He never smoked. No kidney problems before but had UTI and was treated with Macrodantin. PREVIOUS SURGERIES: No previous surgeries. PHYSICAL EXAMINATION: VITAL SIGNS: I find his temperature is 98, pulse 84, blood pressure 120/81, respirations are 20. HEENT: Head is atraumatic, normocephalic. Pupils are reacting to light. No pallor present. Tongue is moist. NECK: Supple. JVP is flat. LUNGS; Clear to auscultation. No crackles or rales present. HEART: S1, S2 is regular. No murmurs present. ABDOMEN; Soft, nontender. No guarding, no rigidity present. No CVA tenderness present at this time. EXTREMITIES: Have no edema, clubbing, or cyanosis. LABORATORY DATA: White count is 7.2, hemoglobin 13.7, hematocrit 39.5, platelet count is 208. Sodium is 140, potassium 4.2, chloride 106, CO2 is 25, anion gap is 14, BUN is 11, creatinine 0.7. He had a CAT scan of the abdomen and pelvis done before and the thing is that the kidney demonstrates symmetrical nephrogram. No evidence of nephrolithiasis or hydronephrosis. There is a small, approximately 6.6 mm low-attenuation focused lateral posterior cortex, left kidney. This could represent a hyperdense cyst. No evidence to suggest pyelonephritis. When I saw him, I also ordered ultrasound which at the time when I am dictating my consult is already done and I did see the report. The reports says, no suspicious findings, no obstructive uropathy, tiny bilateral renal cyst suggested with one in each kidney as discussed above, so there is a small cyst, so he has a polycystic kidney disease, probably genetic but that is not causing a problem at this time, and there is no hydronephrosis. ASSESSMENT AND PLAN: At this time, I would treat him for cystitis and he already got meropenem today and yesterday, and I have given a slip for Invanz 1 g daily for next 5 days to the supervisor case loading, and hopefully, we can give him Invanz as outpatient and also he should follow up the results of HIV test, which I think was sent on him by the resident, and he has anxiety disorder. I also gave him a slip for Bacid 1 capsule b.i.d. for next 10 to 15 days as he has had antibiotics to prevent any Clostridium difficile. Orlando Lucas MD
[2019-02-01 07:24] LABS: BASO % 0.4 % (0.0-2.0); EOS # 0.1 K/uL (0.0-0.7); EOS % 1.2 % (0.0-4.0); HEMOGLOBIN 12.7 g/dL (12.0-18.0); LYMPH # 1.5 K/uL (1.0-4.3); LYMPH % 19.8 % (20.0-40.0); MEAN CELL VOLUME 82.9 fL (80.0-94.0); MEAN CORPUSCULAR HEMOGLOBIN 28.7 pg (27.0-31.0); MEAN CORPUSCULAR HGB CONC 34.6 g/dL (33.0-37.0); MEAN PLATELET VOLUME 9.4 fL (7.2-11.7); MONO # 0.5 K/uL (0.0-0.8); MONO % 6.7 % (0.0-10.0); NEUT # 5.3 K/uL (1.8-7.0); NEUT % 71.9 % (50.0-75.0); NRBC % 0.1 % (0.0-2.0); RBC 4.43 Mil/uL (4.40-5.90); RED CELL DISTRIBUTION WIDTH 12.8 % (11.5-14.5); WHITE BLOOD COUNT 7.4 K/uL (4.8-10.8)
[2019-02-01 07:32] VITALS: BP 101/59; PULSE 68; RESP 20; TEMP 98
[2019-02-01 07:39] LABS: ALB/GLOB RATIO 1.3 (1.0-2.1); ALBUMIN 3.5 g/dL (3.5-5.0); ALT/SGPT 21 U/L (21-72); AST/SGOT 21 U/L (17-59); BLOOD UREA NITROGEN 7 mg/dL (9-20); GFR NON-AFRICAN AMERICAN > 60
--- NOTE | 2019-02-01 12:49 | CP.PCM.DIS ---
<Tr Real - Last Filed: 02/01/19 12:43> Provider - Provider Date of Admission: 01/28/19 22:49 Attending physician: Shailesh Cruz MD Consults: 01/30/19 14:38 Infectious Disease Consult Routine Comment: Consulting Provider: Orlando Lucas Consulting Physician: Orlando Lucas Reason for Consult: ESBL E Coli UTI 01/31/19 12:12 Psychiatry Consult Routine Comment: Consulting Provider: Kingsley Del Valle Consulting Physician: Kingsley Del Valle Reason for Consult: Anxiety Time Spent in preparation of Discharge (in minutes): 45 Diagnosis - Discharge Diagnosis (1) UTI due to extended-spectrum beta lactamase (ESBL) producing Escherichia coli Status: Acute Hospital Course - Lab Results Lab Results: Micro Results 01/29/19 00:34 Blood Blood Culture - Preliminary NO GROWTH AFTER 3 DAYS 01/29/19 00:33 Blood Blood Culture - Preliminary NO GROWTH AFTER 3 DAYS 01/28/19 21:49 Urine Random Urine Culture - Final Escherichia Coli Most Recent Lab Values WBC 7.4 K/uL (4.8-10.8) 02/01/19 06:50 RBC 4.43 Mil/uL (4.40-5.90) 02/01/19 06:50 Hgb 12.7 g/dL (12.0-18.0) 02/01/19 06:50 Hct 36.7 % (35.0-51.0) 02/01/19 06:50 MCV 82.9 fL (80.0-94.0) 02/01/19 06:50 MCH 28.7 pg (27.0-31.0) 02/01/19 06:50 MCHC 34.6 g/dL (33.0-37.0) 02/01/19 06:50 RDW 12.8 % (11.5-14.5) 02/01/19 06:50 Plt Count 211 K/uL (130-400) 02/01/19 06:50 MPV 9.4 fL (7.2-11.7) 02/01/19 06:50 Neut % (Auto) 71.9 % (50.0-75.0) 02/01/19 06:50 Lymph % (Auto) 19.8 % (20.0-40.0) L 02/01/19 06:50 [place] % (Auto) 6.7 % (0.0-10.0) 02/01/19 06:50 Eos % (Auto) 1.2 % (0.0-4.0) 02/01/19 06:50 Baso % (Auto) 0.4 % (0.0-2.0) 02/01/19 06:50 Neut # (Auto) 5.3 K/uL (1.8-7.0) 02/01/19 06:50 Lymph # (Auto) 1.5 K/uL (1.0-4.3) 02/01/19 06:50 [place] # (Auto) 0.5 K/uL (0.0-0.8) 02/01/19 06:50 Eos # (Auto) 0.1 K/uL (0.0-0.7) 02/01/19 06:50 Baso # (Auto) 0.0 K/uL (0.0-0.2) 02/01/19 06:50 PT 14.7 SECONDS (9.7-12.2) H 01/28/19 21:49 INR 1.3 01/28/19 21:49 APTT 31.0 SECONDS (21-34) 01/28/19 21:49 Sodium 139 mmol/L (132-148) 02/01/19 06:50 Potassium 4.1 mmol/L (3.6-5.2) 02/01/19 06:50 Chloride 107 mmol/L (98-107) 02/01/19 06:50 Carbon Dioxide 26 mmol/L (22-30) 02/01/19 06:50 Anion Gap 10 (10-20) 02/01/19 06:50 BUN 7 mg/dL (9-20) L 02/01/19 06:50 Creatinine 0.7 mg/dL (0.8-1.5) L 02/01/19 06:50 Est GFR ( Amer) > 60 02/01/19 06:50 Est GFR (Non-Af Amer) > 60 02/01/19 06:50 Random Glucose 77 mg/dL (75-110) 02/01/19 06:50 Calcium 9.0 mg/dl (8.6-10.4) 02/01/19 06:50 Total Bilirubin 0.6 mg/dL (0.2-1.3) 02/01/19 06:50 AST 21 U/L (17-59) 02/01/19 06:50 ALT 21 U/L (21-72) 02/01/19 06:50 Alkaline Phosphatase 57 U/L (38-126) 02/01/19 06:50 Total Protein 6.2 g/dL (6.3-8.3) L 02/01/19 06:50 Albumin 3.5 g/dL (3.5-5.0) 02/01/19 06:50 Globulin 2.7 gm/dL (2.2-3.9) 02/01/19 06:50 Albumin/Globulin Ratio 1.3 (1.0-2.1) 02/01/19 06:50 Urine Color Straw (YELLOW) 01/28/19 20:47 Urine Clarity Hazy (Clear) 01/28/19 20:47 Urine pH 7.0 (5.0-8.0) 01/28/19 20:47 Ur Specific Burnet 1.002 (1.003-1.030) L 01/28/19 20:47 Urine Protein Negative mg/dL (NEGATIVE) 01/28/19 20:47 Urine Glucose (UA) Normal mg/dL (Normal) 01/28/19 20:47 Urine Ketones Negative mg/dL (NEGATIVE) 01/28/19 20:47 Urine Blood 3+ (NEGATIVE) H 01/28/19 20:47 Urine Nitrate Negative (NEGATIVE) 01/28/19 20:47 Urine Bilirubin Negative (NEGATIVE) 01/28/19 20:47 Urine Urobilinogen Normal mg/dL (0.2-1.0) 01/28/19 20:47 Ur Leukocyte Esterase 3+ Moody/uL (Negative) H 01/28/19 20:47 Urine WBC (Auto) 103 /hpf (0-5) H 01/28/19 20:47 Urine RBC (Auto) 21 /hpf (0-3) H 01/28/19 20:47 Urine Bacteria Rare (<OCC) 01/28/19 20:47 - Hospital Course Hospital Course: HPI 29M with no PMHx presents to ED with 3 days of worsening dark urines, dysuria refractory to home antibiotics. Pt said symptoms originally began to resolve with his home antibiotics (finished 7 days of Nitrofurantoin) but then symptoms worsened, prompting him to come to the ED. Reports dehydration, he didnt drink any water yesterday during the heat of the day, was out walking a lot at [employer]. Pt reports regular f/u in [place] and at the [facility] where his uncle works. Has been worked up in past for PKD - no cysts ever seen, no hx of HTN. Pt says he is anxious. Pt states he is now urinating pale yellow urine, no pain, feeling much better since started on IV Fluids. Hospital Course Patient presented with symptoms of UTI and was treated for UTI, initially started on Rocephin IV Q12. Patient was continued on antibiotic therapy pending cultures and sensitivities. Patient presented initially with a WBC count of 18.1 which normalized after one day of antibiotics, and by hospital day 2 patient was completely asymptomatic as well. CT a/p was ordered to rule out any obstructive cause of UTI in a healthy young male. CT a/p was negative except for mild bladder thickening c/w mild cystitis. Urine cultures and sensitivities resulted growing ESBL E Coli UTI. ID was consulted, Dr. Lucas, who recommended starting patient on Gentamycin [address] Ambriz cleared patient for discharge once midline was placed for outpatient infusions of Invanz x [address] abd/pelvis 01/30: Minimal bladder wall thickening; rule out cystitis.. No evidence of nephrolithiasis hydronephrosis. No evidence suggest pyelonephritis. Small rounded low-attenuation focus lateral cortex right kidney with Hounsfield units in the low 40s. This could represent hyperdense cyst. Renal ultrasound confirm. Findings consistent with fecal retention-constipation Please note this is only a summary of the events of this hospitalization. For details please see complete medical records. Discharge Exam - Head Exam Head Exam: ATRAUMATIC, NORMOCEPHALIC - Eye Exam Eye Exam: EOMI, Normal appearance - ENT Exam ENT Exam: Mucous Membranes Moist - Respiratory Exam Respiratory Exam: Clear to PA & Lateral, UNREMARKABLE. absent: Rales, Wheezes - Cardiovascular Exam Cardiovascular Exam: REGULAR RHYTHM, +S1, +S2 - Extremities Exam Extremities exam: normal inspection - Neurological Exam Neurological exam: Alert, CN II-XII Intact, Oriented x3 - Psychiatric Exam Psychiatric exam: Normal Affect, Normal Mood - Skin Skin Exam: Dry, Intact Discharge Plan - Follow Up Plan Condition: GOOD Disposition: HOME/ ROUTINE Instructions: Urinary Tract Infection, Adult (DC), Anxiety, Adult (DC) Additional Instructions: Patient is cleared for discharge per Dr. Rajan Please follow up to continue outpatient infusions of Invanz x5 days (for a total of 5 doses), as prescribed by Dr. Lucas, the infectious disease doctor. A copy of your labwork from this hospitalization has been provided in your chart. You have also been provided with a work note to excuse you from work during the time of your hospital stay. Please make sure to follow up with your PMD within 7-10 days of discharge. You may schedule an appointment with the [facility] [place]. Please return to ER if symptoms recur or worsen Referrals: [facility] [Outside] Orlando Lucas MD [Staff Provider] - <Shankar Rajan - Last Filed: 02/01/19 14:52> Provider - Provider Date of Admission: 01/28/19 22:49 Attending physician: Shailesh Cruz MD Consults: 01/30/19 14:38 Infectious Disease Consult Routine Comment: Consulting Provider: Orlando Lucas Consulting Physician: Orlando Lucas Reason for Consult: ESBL E Coli UTI 01/31/19 12:12 Psychiatry Consult Routine Comment: Consulting Provider: Kingsley Del Valle Consulting Physician: Kingsley Del Valle Reason for Consult: Anxiety Hospital Course - Lab Results Lab Results: Micro Results 01/29/19 00:34 Blood Blood Culture - Preliminary NO GROWTH AFTER 3 DAYS 01/29/19 00:33 Blood Blood Culture - Preliminary NO GROWTH AFTER 3 DAYS 01/28/19 21:49 Urine Random Urine Culture - Final Escherichia Coli Most Recent Lab Values WBC 7.4 K/uL (4.8-10.8) 02/01/19 06:50 RBC 4.43 Mil/uL (4.40-5.90) 02/01/19 06:50 Hgb 12.7 g/dL (12.0-18.0) 02/01/19 06:50 Hct 36.7 % (35.0-51.0) 02/01/19 06:50 MCV 82.9 fL (80.0-94.0) 02/01/19 06:50 MCH 28.7 pg (27.0-31.0) 02/01/19 06:50 MCHC 34.6 g/dL (33.0-37.0) 02/01/19 06:50 RDW 12.8 % (11.5-14.5) 02/01/19 06:50 Plt Count 211 K/uL (130-400) 02/01/19 06:50 MPV 9.4 fL (7.2-11.7) 02/01/19 06:50 Neut % (Auto) 71.9 % (50.0-75.0) 02/01/19 06:50 Lymph % (Auto) 19.8 % (20.0-40.0) L 02/01/19 06:50 [place] % (Auto) 6.7 % (0.0-10.0) 02/01/19 06:50 Eos % (Auto) 1.2 % (0.0-4.0) 02/01/19 06:50 Baso % (Auto) 0.4 % (0.0-2.0) 02/01/19 06:50 Neut # (Auto) 5.3 K/uL (1.8-7.0) 02/01/19 06:50 Lymph # (Auto) 1.5 K/uL (1.0-4.3) 02/01/19 06:50 [place] # (Auto) 0.5 K/uL (0.0-0.8) 02/01/19 06:50 Eos # (Auto) 0.1 K/uL (0.0-0.7) 02/01/19 06:50 Baso # (Auto) 0.0 K/uL (0.0-0.2) 02/01/19 06:50 PT 14.7 SECONDS (9.7-12.2) H 01/28/19 21:49 INR 1.3 01/28/19 21:49 APTT 31.0 SECONDS (21-34) 01/28/19 21:49 Sodium 139 mmol/L (132-148) 02/01/19 06:50 Potassium 4.1 mmol/L (3.6-5.2) 02/01/19 06:50 Chloride 107 mmol/L (98-107) 02/01/19 06:50 Carbon Dioxide 26 mmol/L (22-30) 02/01/19 06:50 Anion Gap 10 (10-20) 02/01/19 06:50 BUN 7 mg/dL (9-20) L 02/01/19 06:50 Creatinine 0.7 mg/dL (0.8-1.5) L 02/01/19 06:50 Est GFR ( Amer) > 60 02/01/19 06:50 Est GFR (Non-Af Amer) > 60 02/01/19 06:50 Random Glucose 77 mg/dL (75-110) 02/01/19 06:50 Calcium 9.0 mg/dl (8.6-10.4) 02/01/19 06:50 Total Bilirubin 0.6 mg/dL (0.2-1.3) 02/01/19 06:50 AST 21 U/L (17-59) 02/01/19 06:50 ALT 21 U/L (21-72) 02/01/19 06:50 Alkaline Phosphatase 57 U/L (38-126) 02/01/19 06:50 Total Protein 6.2 g/dL (6.3-8.3) L 02/01/19 06:50 Albumin 3.5 g/dL (3.5-5.0) 02/01/19 06:50 Globulin 2.7 gm/dL (2.2-3.9) 02/01/19 06:50 Albumin/Globulin Ratio 1.3 (1.0-2.1) 02/01/19 06:50 Urine Color Straw (YELLOW) 01/28/19 20:47 Urine Clarity Hazy (Clear) 01/28/19 20:47 Urine pH 7.0 (5.0-8.0) 01/28/19 20:47 Ur Specific Burnet 1.002 (1.003-1.030) L 01/28/19 20:47 Urine Protein Negative mg/dL (NEGATIVE) 01/28/19 20:47 Urine Glucose (UA) Normal mg/dL (Normal) 01/28/19 20:47 Urine Ketones Negative mg/dL (NEGATIVE) 01/28/19 20:47 Urine Blood 3+ (NEGATIVE) H 01/28/19 20:47 Urine Nitrate Negative (NEGATIVE) 01/28/19 20:47 Urine Bilirubin Negative (NEGATIVE) 01/28/19 20:47 Urine Urobilinogen Normal mg/dL (0.2-1.0) 01/28/19 20:47 Ur Leukocyte Esterase 3+ Moody/uL (Negative) H 01/28/19 20:47 Urine WBC (Auto) 103 /hpf (0-5) H 01/28/19 20:47 Urine RBC (Auto) 21 /hpf (0-3) H 01/28/19 20:47 Urine Bacteria Rare (<OCC) 01/28/19 20:47 HIV 1&2 Ag/Ab, 4th Gen Nonreactive (Nonreactive) 01/30/19 19:50 Attending/Attestation - Attestation I have personally seen and examined this patient.: Yes I have fully participated in the care of the patient.: Yes I have reviewed all pertinent clinical information, including history, physical exam and plan: Yes Notes (Text): 02/01/19 14:49 Medical attending: Patient was seen and examined by me. Agree with the above note by the resident The patient was with family member at bedside as well. The patient has a midline. Intially we thought he would be required to stay over the weekend into Monday for infusion of IV abx However the case workers explained to us that they have been able to arrange for the patient to get IV abx infusions here on the third floor over the weekend. The patient CBC is stable, afebrile, and also urination is stable as well. No abdominal pain. Tolerating diet. Shankar Rajan
--- NOTE | 2019-02-01 14:27 | CP.PCM.PN ---
Subjective - Date & Time of Evaluation Date of Evaluation: 02/01/19 Time of Evaluation: 14:00 - Subjective Subjective: dictated Objective - Vital Signs/Intake and Output Vital Signs (last 24 hours): Temp Pulse Resp BP Pulse Ox 98.0 F 68 20 101/59 L 100 02/01/19 07:00 02/01/19 07:00 02/01/19 07:00 02/01/19 07:00 02/01/19 07:00 Intake and Output: 02/01/19 02/01/19 06:59 18:59 Intake Total 3350 Balance 3350 - Medications Medications: Current Medications Acetaminophen (Tylenol 325mg Tab) 650 mg PO Q6 PRN PRN Reason: Fever >100.4 F Last Admin: 01/29/19 00:53 Dose: 650 mg Hydroxyzine HCl (Atarax) 25 mg PO Q6 PRN PRN Reason: Anxiety Lorazepam (Ativan) 0.5 mg PO ONCE PRN PRN Reason: Anxiety Last Admin: 01/29/19 19:33 Dose: 0.5 mg Lorazepam (Ativan) 0.5 mg PO ONCE PRN PRN Reason: Anxiety Last Admin: 01/30/19 07:53 Dose: 0.5 mg - Labs Labs: 02/01/19 06:50 02/01/19 06:50 PT 14.7 SECONDS (9.7-12.2) H 01/28/19 21:49 INR 1.3 01/28/19 21:49 APTT 31.0 SECONDS (21-34) 01/28/19 21:49
--- NOTE | 2019-02-01 17:45 | PN ---
DATE: 02/01/2019 SUBJECTIVE: The patient is feeling a lot better today. He seems to be in a better state of mind. He got second dose of Invanz today and is going to get other doses as outpatient which has been arranged. PHYSICAL EXAMINATION: VITAL SIGNS: According to the medical case manager, T-max is 98, pulse 68, blood pressure 101/59, respirations are 20. HEENT: Head is atraumatic, normocephalic. NECK: Supple. LUNGS: Clear. HEART: S1 and S2. Regular. ABDOMEN: Soft, nontender. He denies any urinary complaints. EXTREMITIES: Have no edema. The patient will probably go home today. LABORATORY DATA: White count is 7.1, creatinine is 0.7. ASSESSMENT AND PLAN: He is to complete the course for urinary tract infection. He was informed about his renal ultrasound which showed no suspicious renal finding bilaterally, bilateral renal cysts suggestive of one in each kidney as discussed above. He does have family history of polycystic kidney disease and probably that is what it is showing. Orlando Lucas MD
== END 2019-02-01 15:02 | disposition home or self-care (01) | DRG 463 ==
LOC: C.ER 20:15 → C.9E 22:49 → C.5S 23:37
PROVIDERS: ADMIT Family Medicine; ATTEND Family Medicine
PROC: 05H933Z Insertion of Infusion Device into Right Brachial Vein, Percutaneous Approach (ICD-10-PCS; principal; 2019-02-01)
DX: N30.90 Cystitis, unspecified without hematuria (principal); B96.20 Unspecified Escherichia coli [E. coli] as the cause of diseases classified elsewhere; Z16.12 Extended spectrum beta lactamase (ESBL) resistance; K59.00 Constipation, unspecified; F41.9 Anxiety disorder, unspecified; E87.6 Hypokalemia; E86.0 Dehydration; Z79.2 Long term (current) use of antibiotics